=== PATIENT | female | born 1995 | race Caucasian/White ===

== ENCOUNTER 2017-10-18 15:57 | Emergency (ER) | payer MEDICAID ==
[~2017-10-18] VITALS: Ht 160 cm; Wt 38.6 kg
[2017-10-18 16:30] VITALS: Ht 160 cm; Wt 38.6 kg
[2017-10-18 18:46] LABS: UA SPECIFIC GRAVITY >=1.030 (1.005-1.035); microscopic required? YES; urine erythrocyte TRACE (NEGATIVE)
[2017-10-18 18:49] LABS: BASOPHIL % 0.5 % (0-2); PLATELET COUNT 247 x10^3mcL (130-400); RED CELL DISTRIBUTION WIDTH 13.2 % (11.5-14.5)
[2017-10-18 18:58] LABS: CALCIUM 9.4 mg/dL (8.5-10.1); CARBON DIOXIDE 29.3 mmol/L (21-32); CHLORIDE SERUM 105 mmol/L (98-107); CREATININE SERUM 0.8 mg/dL (0.6-1.0); GFR1 > 60 mL/min; GLUCOSE SERUM 85 mg/dL (74-106); POTASSIUM SERUM 3.9 mmol/L (3.5-5.1); SODIUM SERUM 140 mmol/L (136-145)
[2017-10-18 19:03] LABS: ALBUMIN 4.3 g/dL (3.4-5.0); ALKALINE PHOSPHATASE 87 U/L (46-116); ALT/SGPT 16 U/L (14-59); AST/SGOT 9 U/L (15-37); BILIRUBIN TOTAL 0.56 mg/dL (0.20-1.00); LIPASE 128 IU/L (73-393)
[2017-10-18 19:06] LABS: AMYLASE 121 U/L (25-115); TOTAL PROTEIN, SERUM 8.5 g/dL (6.4-8.2)
[2017-10-18 21:24] VITALS: BP 103/68
== END 2017-10-18 21:25 | disposition home or self-care (01) ==
LOC: ED 15:57
PROVIDERS: Specialist
DX: R10.31 Right lower quadrant pain (principal)
CPT/HCPCS: 36415